=== PATIENT | male | born 1955 | race Caucasian/White ===

== ENCOUNTER 2020-06-24 11:18 | Outpatient (REF) | payer OTHER, SELFPAY | END 2020-06-24 11:19 | disposition home or self-care (01) | LOC: HO.LAB 11:18 | PROVIDERS: Visit Provider Internal Medicine | DX: Z20.828 Contact with and (suspected) exposure to other viral communicable diseases (principal) | CPT/HCPCS: C9803; U0003 ==

== ENCOUNTER 2020-07-22 12:01 | Outpatient (REF) | payer OTHER, SELFPAY | END 2020-07-22 12:02 | disposition home or self-care (01) | LOC: HO.LNP 12:01 | PROVIDERS: Visit Provider Family Medicine | DX: Z20.828 Contact with and (suspected) exposure to other viral communicable diseases (principal) | CPT/HCPCS: U0003 ==